=== PATIENT | female | born 2000 | race Asian ===

== ENCOUNTER 2020-07-28 16:59 | Outpatient (CLI) | payer OTHER | END 2020-07-28 21:19 | disposition home or self-care (01) | LOC: INF 16:59 | PROVIDERS: ATTEND Internal Medicine | DX: Z23 Encounter for immunization (principal) | CPT/HCPCS: 96372 ==

== ENCOUNTER 2020-08-24 10:49 | Outpatient (CLI) | payer BC, OTHER | END 2020-08-24 21:13 | disposition home or self-care (01) | LOC: INF 10:49 | PROVIDERS: ATTEND Internal Medicine | DX: Z23 Encounter for immunization (principal) | CPT/HCPCS: 96372 ==